=== PATIENT | female | born 1990 | race Caucasian/White ===

== ENCOUNTER 2016-11-10 12:14 | Emergency (ER) | payer MEDICAID, OTHER ==
[~2016-11-10] VITALS: Ht 160 cm; Wt 65.8 kg
[2016-11-10 12:14] VITALS: BP_SYST 143
[~2016-11-10 12:14] MED LIST: LAM100 PO
--- NOTE | 2016-11-10 12:14 | NUR ---
Pt placed to ER bed 08. Report given to MATIAS Ruelas.
--- NOTE | 2016-11-10 12:25 | NUR ---
Pt came for dizziness, and headache. Pt states that she had a seizure on the October and lost consciousness for unknown amount of time. Seizure was unwitnessed and pt only remembers waking up in ambulance going to [facility]. Pt stated she fell on her chin and broke 3 teeth. There is bruising to her chin. Pt has some weakness while walking but is able to answer questions appropriately. No complaints of SOB. No other injuries/complaints per pt or noted
[2016-11-10] MEDS ORDERED: NS 500 ML IV ONE (12:30)
[2016-11-10] MEDS ORDERED: KETOROLAC TROMETHAMINE 30 MG VIAL IVP ONE (12:30)
[2016-11-10] MEDS ORDERED: DEXAMETHASONE SOD PHOSPHATE 10 MG/ML VIAL IVP ONE (12:30)
[2016-11-10] MEDS ORDERED: PROCHLORPERAZINE EDISYLATE 10 MG/2 ML VIAL IVP ONE (12:30)
[2016-11-10] MEDS ORDERED: DIPHENHYDRAMINE INJ 50 MG/ML VIAL IVP ONE (12:30)
--- NOTE | 2016-11-10 12:39 | NUR ---
ER at bedside examining patient.
[2016-11-10 12:45] LABS: BASOPHILS # (AUTO) 0.2 K/uL (0.0-0.2); BASOPHILS % (AUTO) 2.3 % (0.0-2.0); EOSINOPHILS # (AUTO) 0.1 K/uL (0.0-0.4); EOSINOPHILS % (AUTO) 0.6 % (0.0-4.0); HEMOGLOBIN 14.7 g/dL (12.0-16.0); LYMPHOCYTES # (AUTO) 1.6 K/uL (1.0-5.5); LYMPHOCYTES % (AUTO) 15.4 % (20.5-51.5); MEAN CORPUSCULAR HEMOGLOBIN 26 pg (27-31); MEAN CORPUSCULAR HGB CONC 33 % (32-36); MEAN CORPUSCULAR VOLUME 81 fL (79.0-98.0); MONOCYTES # (AUTO) 0.4 K/uL (0.0-1.0); MONOCYTES % (AUTO) 4.2 % (1.7-9.3); NEUTROPHILS # (AUTO) 7.9 K/uL (1.8-7.7); NEUTROPHILS % (AUTO) 77.5 % (40.0-70.0); PLATELET COUNT (AUTO) 394 K/uL (130-430); RED BLOOD CELL COUNT(AUTO) 5.56 MIL/uL (4.2-6.2); RED CELL DISTRIBUTION WIDTH 12.9 % (9.0-15.0); WHITE BLOOD COUNT (AUTO) 10.2 K/uL (4.8-10.8)
--- NOTE | 2016-11-10 12:45 | NUR ---
Note undneeta in EDM - 11/10/16 at 1253 by TRUDY Patient's guardian given written and verbal discharge instructions and verbalizes understanding. ER discussed with patient's guardian the results and treatment provided. Patient in stable condition. ID arm band removed. Rx of amoxicillin and ibuprofen given. Patient's guardian educated on pain management, fever management, and to follow up with primary physician. Pain Scale/FLACC 0. Opportunity for questions provided and answered.
[2016-11-10 12:57] LABS: CALCIUM 9.3 mg/dL (8.4-11.0); CREATININE 1.21 mg/dL (0.55-1.30); POTASSIUM 3.7 mmol/L (3.5-5.1)
[2016-11-10 13:02] LABS: ALBUMIN 4.7 g/dL (3.4-4.8); TOTAL BILIRUBIN 0.6 mg/dL (0.0-1.0); TOTAL PROTEIN, SERUM 8.5 g/dL (6.4-8.3)
--- NOTE | 2016-11-10 13:03 | NUR ---
Pt went to CT in stable condition
--- NOTE | 2016-11-10 13:40 | NUR ---
Medications were given but unable to save at this time, will retry.
--- NOTE | 2016-11-10 13:45 | NUR ---
Pt stated that she was "feeling better, no dizziness or nausea" Pt is resting comfortably with no noted distress or discomfort.
[2016-11-10 14:00] LABS: BILIRUBIN,URINE NEGATIVE (NEGATIVE); BLOOD, URINE NEGATIVE (NEGATIVE); CLARITY/URINE CLEAR (CLEAR); COLOR,URINE YELLOW (YELLOW); GLUCOSE,URINE NEGATIVE (NEGATIVE); KETONES,URINE TRACE (NEGATIVE); LEUKOCYTE ESTERASE ,URINE 1+ (NEGATIVE); NITRITE, URINE NEGATIVE (NEGATIVE); PROTEIN URINE NEGATIVE (NEGATIVE); UROBILINOGEN,URINE 0.2 (0.2-1.0)
[2016-11-10 14:07] LABS: BACTERIA,URINE FEW /HPF (None Seen); MUCUS,URINE None Seen /LPF (None Seen); RBC,URINE 0-3 /HPF (0-3); WBC,URINE 0-3 /HPF (0-3)
--- NOTE | 2016-11-10 14:10 | NUR ---
Pt states pain has decreased a lot and her head does not hurt anymore.
[2016-11-10 14:30] VITALS: BP_SYST 111
--- NOTE | 2016-11-10 14:30 | NUR ---
Patient given written and verbal discharge instructions and verbalizes understanding. ER MD discussed with patient the results and treatment provided. Patient in stable condition. ID arm band removed. IV catheter removed intact and dressing applied, no active bleeding. Rx of motrin given. Patient educated on pain management and to follow up with PMD. Pain Scale 1. Pt tolerates pain level at 1 Opportunity for questions provided and answered.
== END 2016-11-10 14:30 | disposition home or self-care (01) ==
LOC: SED 12:14
DX: N39.0 Urinary tract infection, site not specified (principal); R51 Headache; R42 Dizziness and giddiness
CPT/HCPCS: 36415; 70450; 80053; 81000; 85025; 96361; 96374; 96375; 99285; J0780; J1100; J1885; J7040